=== PATIENT | male | born 1980 | race Caucasian/White ===

== ENCOUNTER → 2016-08-21 | Outpatient (CLI) | payer OTHER ==
[~2016-08-21] MED LIST: CEPH500C2 PO; CZR25 PO; DOXY100C2 PO; DOXY100C76 PO; MULT-506 PO; SULF800T23 PO
== END | disposition home or self-care (01) ==
LOC: C.LAB 15:34
DX: Z02.83 Encounter for blood-alcohol and blood-drug test (principal)

== ENCOUNTER 2016-08-28 14:54 | Emergency (ER) | payer OTHER ==
[~2016-08-28] VITALS: Ht 175.3 cm; Wt 89.4 kg
[~2016-08-28 14:54] MED LIST changes: -CEPH500C2 PO; -DOXY100C76 PO; -SULF800T23 PO
[2016-08-28 15:08] VITALS: TEMP 36.8; Ht 175.3 cm; Wt 89.4 kg
[2016-08-28] MEDS ORDERED: DOXY100C76 PO (15:16)
[2016-08-28] MEDS ORDERED: LIDOCAINE/EPINEPHRINE 1% 20 ML VIAL INFIL ONE (15:45)
[2016-08-28] MEDS ORDERED: CEPH500C2 PO (16:50)
[2016-08-28] MEDS ORDERED: SULF800T23 PO (16:50)
--- NOTE | 2016-08-28 16:51 | EMERGENCY ROOM VISIT NOTE ---
ED Visit Note First contact with patient: 15:21 CHIEF COMPLAINT: "I have a cyst on my shoulder" HISTORY OF PRESENT ILLNESS: Patient is a 35-year-old white male who presents to emergency department for evaluation of a "cyst" on the top of the left shoulder. He noticed his symptoms about 6 days ago. He states that the area is red, tender, swollen and has progressively worsened throughout the week. He has not taken any medications, nor performed any interventions for his symptoms. He rates his pain a 6/10. He denies any fever or chills. He does have a history of symptoms similar in the past. There was no skin injury to the area preceding the onset of his symptoms that he is aware of. REVIEW OF SYSTEMS: Review of systems as per HPI. All other systems reviewed were negative. At least 6 systems reviewed. PMH: Electronic medical records are reviewed and summarized as above/below. See Problem List. Tetanus is up-to-date. SOCIAL HISTORY: Patient lives at home with his fianc and children. Positive tobacco and alcohol use, does not specify the amounts. He is employed. PHYSICAL EXAM: Vital Signs: Reviewed Nurse's notes. CONSTITUTIONAL: Patient is a well-appearing 35-year-old white male who is awake and alert and in no acute distress. INTEGUMENTARY: On the patient's back, near the left trapezius reason, he has a erythematous, tender, indurated and slightly fluctuant lesion. It appears consistent with an abscess with some surrounding cellulitis. There is no pointing. EMERGENCY DEPARTMENT COURSE: Using saline and Betadine cleansing, lidocaine anesthesia, and sterile technique, the abscess cavity was incised with a number 15 scalpel blade. Purulent and sebaceous material drained and more was expressed. Culture was obtained and is pending. The cavity was probed thoroughly for loculations, and irrigated copiously with normal saline solution. Plain gauze packing was placed. The lesion appears consistent with an infected sebaceous cyst. The patient will be placed on Keflex and Bactrim pending culture results packing removal in 48 hours. Patient was advised to follow-up with general surgery within the area has healed for definitive care and management of the sebaceous cyst. Problem List Medical Problems: (1) Alkaline burn of left cornea Status: Resolved (2) Alkaline burn of right cornea Status: Resolved (3) Epigastric pain Status: Resolved (4) Hypertension Status: Chronic (5) Visual loss, left eye Status: Resolved Current/Historical Medications Scheduled Cephalexin Monohydrate (Keflex), 500 MG PO TID Doxycycline Monohydrate (Monodox), 100 MG PO BID Losartan Potassium (Losartan Potassium), 25 MG PO DAILY Multivitamin (Multivitamin), 1 TAB PO DAILY Sulfa/Trimethoprim (Bactrim Ds 800MG/160MG), 1 TAB PO BID Allergies Coded Allergies: No Known Allergies (Unverified , 08/28/16) Vital Signs Date Time Temp Pulse Resp B/P (MAP) Pulse Ox O2 Delivery O2 Flow Rate FiO2 08/28/16 17:00 82 16 164/108 96 08/28/16 15:08 36.8 88 16 150/94 97 Room Air Medications Administered Medications (Trade) Dose Ordered Sig/Maggie Route Start Time Stop Time Status Last Admin Dose Admin Cephalexin Monohydrate (Keflex 500MG Home Pack) 1 homepack NOW ONCE PO 08/28/16 17:00 08/28/16 17:01 DC 08/28/16 17:00 1 HOMEPACK Trimethoprim/ Sulfamethoxazole (Sulfameth/ Trimeth Ds 800/ 160MG Home Pack) 1 homepack UD ONCE PO 08/28/16 17:00 08/28/16 17:01 DC 08/28/16 17:00 1 HOMEPACK Departure Information Impression Primary Impression: Infected sebaceous cyst Prescriptions Sulfa/Trimethoprim (Bactrim Ds 800MG/160MG) Tab 1 TAB PO BID, #14 TAB Prov: Brigitte Riley PA 08/28/16 Cephalexin Monohydrate (KEFLEX) 500 Mg Cap 500 MG PO TID, #21 CAP Prov: Brigitte Riley PA 08/28/16 Referrals Kathy Avila M.D. (MEDICAL) (PCP) Patient Instructions My [facility] Additional Instructions Cephalexin(Keflex) 500mg: Take one pill four times daily for 10 days for your skin infection. All antibiotics can cause diarrhea. If this occurs and you feel worse or it does not resolve in 1-2 days follow up with your doctor or return to the Emergency Department as this could be signs of serious underlying problems. Any medication can cause an allergic reaction, stop the pills immediately and return to the ER for rash, hives, breathing difficulties, or swelling. Trimethoprim-Sulfamethoxazole(Bactrim DS): Take one pill twice daily for 10 days for your skin infection. All antibiotics can cause diarrhea. If this occurs and you feel worse or it does not resolve in 1-2 days follow up with your doctor or return to the Emergency Department as this could be signs of serious underlying problems. Any medication can cause an allergic reaction, stop the pills immediately and return to the ER for rash, hives, breathing difficulties, or swelling. Ibuprofen(Motrin, Advil) may be used for fever or pain. Use 600mg every six hours as needed. Take with food. Avoid using more than 2400mg in a 24 hour period. Do not use 2400mg per day for more than three consecutive days without physician direction. Prolonged inappropriate use can lead to stomach upset or ulcers. (AND/OR) Acetaminophen(Tylenol) may be used for fever or pain. Use 1000mg every six hours as needed. Avoid using more than 3000mg in a 24 hour period. Warm compresses to the affected area 4 times daily for 15-20 minutes. Dressing changes daily, more often if the area becomes saturated or soiled. May shower, became felt to not remove the packing material accidentally when bathing or changing the dressing. Remove the packing material in 48 hours. Rest and drink plenty of fluids. Continue current medications. Return to the ER for severe pain, persistent fevers, spreading redness, or any worsening of your condition. Follow up with your primary physician next week for a recheck of the current condition. You may require referral to a general surgeon for excision of the underlying sebaceous cyst once the infection has cleared.
[2016-08-28 17:00] VITALS: BP 164/108; PULSE 82; O2SAT 96
[2016-08-28] MEDS ORDERED: SEPTRA DS HOME PACK 1 EA VIAL PO ONE (17:00)
[2016-08-28] MEDS ORDERED: CEPHALEXIN 500MG HOME PACK 1 EA BTL PO ONE (17:00)
== END 2016-08-28 17:01 | disposition home or self-care (01) ==
LOC: C.EDB 14:56 → C.EDD 17:01
DX: L72.3 Sebaceous cyst (principal); I10 Essential (primary) hypertension